=== PATIENT | female | born 1975 | race Caucasian/White ===

== ENCOUNTER → 2016-07-31 | Outpatient (CLI) | payer BC ==
[2005-05-31 07:20] VITALS: TEMP 98.4
== END ==
LOC: MC.RAD 14:00
DX: N63 Unspecified lump in breast (principal)

== ENCOUNTER → 2017-03-03 | Outpatient (CLI) | payer BC ==
[2005-05-31 07:20] VITALS: TEMP 98.4
== END ==
LOC: MC.RAD 08:40
DX: Z12.31 Encounter for screening mammogram for malignant neoplasm of breast (principal)

== ENCOUNTER → 2018-10-06 | Outpatient (CLI) | payer BC ==
[2005-05-31 07:20] VITALS: TEMP 98.4
== END ==
LOC: MC.RAD 10:14
DX: Z12.31 Encounter for screening mammogram for malignant neoplasm of breast (principal)

== ENCOUNTER → 2019-10-11 | Outpatient (CLI) | payer BC ==
[2005-05-31 07:20] VITALS: TEMP 98.4
== END ==
LOC: MC.RAD 10:55
DX: Z12.31 Encounter for screening mammogram for malignant neoplasm of breast (principal)

== ENCOUNTER → 2020-12-14 | Outpatient (CLI) | payer BC ==
[2005-05-31 07:20] VITALS: TEMP 98.4
== END ==
LOC: MC.RAD 10:57
DX: Z12.31 Encounter for screening mammogram for malignant neoplasm of breast (principal); N63.10 Unspecified lump in the right breast, unspecified quadrant

== ENCOUNTER → 2020-12-27 | Outpatient (CLI) | payer BC ==
[2005-05-31 07:20] VITALS: TEMP 98.4
== END ==
LOC: MC.RAD 08:30
DX: N63.10 Unspecified lump in the right breast, unspecified quadrant (principal); N60.11 Diffuse cystic mastopathy of right breast

== ENCOUNTER → 2023-02-06 | Outpatient (CLI) | payer BC ==
[2005-05-31 07:20] VITALS: TEMP 98.4
== END ==
LOC: MC.RAD 07:52
DX: Z12.31 Encounter for screening mammogram for malignant neoplasm of breast (principal)